=== PATIENT | male | born 1945 | race Caucasian/White ===

== ENCOUNTER 2019-06-29 07:52 | Emergency (ER) | payer MEDICARE, OTHER ==
[~2019-06-29] VITALS: Ht 165.1 cm; Wt 59.4 kg
--- NOTE | 2019-06-29 07:52 | NUR ---
TO ER BED 10, NOTED W L EYEBROW, L HIP AND KNEES. AOx4, HARD COLLAR MAINTAINED. HOOKED TO MONITOR, PROVIDED W WARM BLANKET. AWAITING MD DEGROOT.
--- NOTE | 2019-06-29 08:07 | NUR ---
SEEN AND EXAMINED BY DR LEDEZMA
--- NOTE | 2019-06-29 08:24 | NUR ---
[employer] AT BEDSIDE FOR INVESTIGATION
--- NOTE | 2019-06-29 08:46 | NUR ---
PATIENT BACK FROM CT SCAN
[2019-06-29] MEDS ORDERED: TDAP [DIPH/PERTUSSIS/TET] 0.5 ML VIAL IM ONE ×2 (10:12→10:30)
[2019-06-29] MEDS ORDERED: ACETAMINOPHEN ES 500 MG TABLET ONE (10:12)
[2019-06-29] MEDS ORDERED: ACETAMINOPHEN ES 500 MG TABLET PO ONE (10:30)
--- NOTE | 2019-06-29 11:02 | NUR ---
PATIENT ABLE TO AMBULATE W STEADY GAIT
--- NOTE | 2019-06-29 11:24 | NUR ---
Patient discharged to home in stable condition. Written and verbal after care instructions given. Patient verbalizes understanding of instruction.
[2019-06-29 11:25] VITALS: BP 110/56
== END 2019-06-29 11:26 | disposition home or self-care (01) ==
LOC: ER 07:58
DX: S00.81XA Abrasion of other part of head, initial encounter (principal); S80.212A Abrasion, left knee, initial encounter; V23.4XXA Motorcycle driver injured in collision with car, pick-up truck or van in traffic accident, initial encounter; Y93.55 Activity, bike riding; Y92.89 Other specified places as the place of occurrence of the external cause; Y99.8 Other external cause status
CPT/HCPCS: 70450; 72125; 73503; 73564; 90471; 90715; 99284; A6403; 73502